=== PATIENT | female | born 1980 | race Caucasian/White ===

== ENCOUNTER 2018-12-22 16:56 | Emergency (ER) | payer MEDICAID, OTHER ==
[~2018-12-22] VITALS: Ht 180.3 cm; Wt 108.9 kg
[2018-12-22 17:05] VITALS: BP_SYST 134
--- NOTE | 2018-12-22 17:14 | NUR ---
Patient to ER bed 4 to gown for evaluation. Side rails up. Report given to Valerio PAYTON.
--- NOTE | 2018-12-22 17:20 | NUR ---
PT AAOx4 ambulated into ED c/o dysuria x 3 days with new onset 8/10 bilateral flank pain. Skin pink dry and warm, breathing even and unlabored. No other injuries/complaints per pt/noted. Will continue to monitor.
[2018-12-22] MEDS ORDERED: KETOROLAC TROMETHAMINE 30 MG VIAL IVP ONE (17:30)
[2018-12-22] MEDS ORDERED: NACL 0.9% 1,000 ML IV ONE (17:30)
[2018-12-22 17:42] LABS: BILIRUBIN,URINE NEGATIVE (NEGATIVE); BLOOD, URINE NEGATIVE (NEGATIVE); CLARITY/URINE SL HAZY (CLEAR); COLOR,URINE YELLOW (YELLOW); GLUCOSE,URINE NEGATIVE (NEGATIVE); KETONES,URINE NEGATIVE (NEGATIVE); LEUKOCYTE ESTERASE ,URINE 1+ (NEGATIVE); NITRITE, URINE NEGATIVE (NEGATIVE); PH,URINE 5.5 (5.0-8.0); PROTEIN URINE NEGATIVE (NEGATIVE); UROBILINOGEN,URINE 0.2 (0.2-1.0)
--- NOTE | 2018-12-22 17:48 | NUR ---
ER MONICA Cabrera examining patient.
[2018-12-22 17:58] LABS: RBC,URINE 0-3 /HPF (0-3)
[2018-12-22 17:59] LABS: BACTERIA,URINE MODERATE /HPF (None Seen); MUCUS,URINE 1+ /LPF (None Seen)
[2018-12-22 18:01] LABS: BASOPHILS # (AUTO) 0.1 K/uL (0.0-0.2); BASOPHILS % (AUTO) 0.8 % (0.0-2.0); EOSINOPHILS # (AUTO) 0.3 K/uL (0.0-0.4); EOSINOPHILS % (AUTO) 2.6 % (0.0-4.0); HEMATOCRIT 45.1 % (36-48); HEMOGLOBIN 14.6 g/dL (12.0-16.0); LYMPHOCYTES # (AUTO) 3.6 K/uL (1.0-5.5); LYMPHOCYTES % (AUTO) 31.7 % (20.5-51.5); MEAN CORPUSCULAR HEMOGLOBIN 26 pg (27-31); MEAN CORPUSCULAR HGB CONC 32 % (32-36); MEAN CORPUSCULAR VOLUME 82 fL (79.0-98.0); MONOCYTES # (AUTO) 0.9 K/uL (0.0-1.0); MONOCYTES % (AUTO) 7.6 % (1.7-9.3); NEUTROPHILS # (AUTO) 6.5 K/uL (1.8-7.7); NEUTROPHILS % (AUTO) 57.3 % (40.0-70.0); PLATELET COUNT (AUTO) 387 K/uL (130-430); RED BLOOD CELL COUNT(AUTO) 5.54 MIL/uL (4.2-6.2); RED CELL DISTRIBUTION WIDTH 13.9 % (9.0-15.0); WHITE BLOOD COUNT (AUTO) 11.4 K/uL (4.8-10.8)
[2018-12-22 18:13] LABS: CALCIUM 10.2 mg/dL (8.4-11.0); CREATININE 0.74 mg/dL (0.55-1.30); POTASSIUM 3.8 mmol/L (3.5-5.1)
[2018-12-22 18:17] LABS: ALBUMIN 3.9 g/dL (3.4-4.8); TOTAL BILIRUBIN 0.3 mg/dL (0.0-1.0)
--- NOTE | 2018-12-22 18:38 | NUR ---
Pt transported to ultrasound via wheelchair in stable condition
--- NOTE | 2018-12-22 19:02 | NUR ---
Pt moved to bed 07
--- NOTE | 2018-12-22 19:09 | NUR ---
Pelvic exam performed by Deborah ANDERSON with Maria C RN at bedside for entire examination. Patient tolerated procedure well. Patient assisted to position of comfort after examination.
[2018-12-22] MEDS ORDERED: PHENAZOPYRIDINE HCL 100 MG TABLET PO ONE (19:15)
[2018-12-22] MEDS ORDERED: ONDANSETRON HCL 4 MG/2 ML VIAL IVP ONE (19:30)
[2018-12-22] MEDS ORDERED: NITROFURANTOIN MONOHYD/M-CRYST 100 MG CAPSULE PO ONE (20:00)
[2018-12-22 20:15] VITALS: BP_SYST 130
--- NOTE | 2018-12-22 20:15 | NUR ---
Patient given written and verbal discharge instructions and verbalizes understanding. ER MD discussed with patient the results and treatment provided. Patient in stable condition. ID arm band removed. IV catheter removed intact and dressing applied, no active bleeding. Rx of pyridium, macrobid, motrin given. Patient educated on pain management and to follow up with PMD. Pain Scale 2/10. Opportunity for questions provided and answered. Medication side effect fact sheet provided.
[2018-12-24 21:06] LABS: CHLAMYDIA TRACHOMATIS NAA Negative (Negative); NEISSERIA GONORRHOEAE NAA Negative (Negative)
== END 2018-12-22 20:15 | disposition home or self-care (01) ==
LOC: SED 16:56
DX: N20.0 Calculus of kidney (principal); N39.0 Urinary tract infection, site not specified; R03.0 Elevated blood-pressure reading, without diagnosis of hypertension; Z11.3 Encounter for screening for infections with a predominantly sexual mode of transmission; Z90.89 Acquired absence of other organs; Z88.0 Allergy status to penicillin; Z88.1 Allergy status to other antibiotic agents; Z91.041 Radiographic dye allergy status; Z91.048 Other nonmedicinal substance allergy status; Z88.8 Allergy status to other drugs, medicaments and biological substances
CPT/HCPCS: 36415; 74176; 76830; 76857; 80053; 81000; 81025; 83690; 85025; 87086; 87210; 87491; 87591; 96374; 96375; 99284; J1885; J2405; J7030

== ENCOUNTER 2019-01-03 16:47 | Inpatient (IN) | payer MEDICAID, OTHER ==
[~2019-01-03] VITALS: Ht 180.3 cm; Wt 108.9 kg
[2019-01-03 16:53] VITALS: BP_SYST 132
[2019-01-03 17:51] LABS: CALCIUM 9.4 mg/dL (8.4-11.0); CREATININE 0.65 mg/dL (0.55-1.30); POTASSIUM 3.6 mmol/L (3.5-5.1)
[2019-01-03 17:55] LABS: ALBUMIN 3.6 g/dL (3.4-4.8); TOTAL BILIRUBIN 0.3 mg/dL (0.0-1.0)
[2019-01-03 17:58] LABS: BASOPHILS # (AUTO) 0.1 K/uL (0.0-0.2); BASOPHILS % (AUTO) 0.9 % (0.0-2.0); EOSINOPHILS # (AUTO) 0.8 K/uL (0.0-0.4); HEMATOCRIT 41.6 % (36-48); HEMOGLOBIN 13.8 g/dL (12.0-16.0); LYMPHOCYTES # (AUTO) 3.3 K/uL (1.0-5.5); LYMPHOCYTES % (AUTO) 23.8 % (20.5-51.5); MEAN CORPUSCULAR HEMOGLOBIN 27 pg (27-31); MEAN CORPUSCULAR HGB CONC 33 % (32-36); MEAN CORPUSCULAR VOLUME 83 fL (79.0-98.0); MONOCYTES # (AUTO) 0.9 K/uL (0.0-1.0); MONOCYTES % (AUTO) 6.4 % (1.7-9.3); NEUTROPHILS # (AUTO) 8.7 K/uL (1.8-7.7); NEUTROPHILS % (AUTO) 62.9 % (40.0-70.0); PLATELET COUNT (AUTO) 506 K/uL (130-430); RED BLOOD CELL COUNT(AUTO) 5.04 MIL/uL (4.2-6.2); WHITE BLOOD COUNT (AUTO) 13.9 K/uL (4.8-10.8)
[2019-01-03 18:56] LABS: BILIRUBIN,URINE NEGATIVE (NEGATIVE); BLOOD, URINE NEGATIVE (NEGATIVE); CLARITY/URINE CLEAR (CLEAR); COLOR,URINE YELLOW (YELLOW); GLUCOSE,URINE NEGATIVE (NEGATIVE); KETONES,URINE NEGATIVE (NEGATIVE); LEUKOCYTE ESTERASE ,URINE NEGATIVE (NEGATIVE); NITRITE, URINE NEGATIVE (NEGATIVE); PROTEIN URINE NEGATIVE (NEGATIVE); UROBILINOGEN,URINE 0.2 (0.2-1.0)
[2019-01-03] MEDS ORDERED: ONDANSETRON HCL 4 MG/2 ML VIAL IVP ONE ×2 (20:15→22:30)
[2019-01-03] MEDS ORDERED: NACL 0.9% 1,000 ML IV ONE (20:15)
[2019-01-03] MEDS ORDERED: KETOROLAC TROMETHAMINE 30 MG VIAL IVP ONE ×2 (20:15→21:45)
[2019-01-03] MEDS ORDERED: SULFAMETHOXAZOLE/TRIMETHOPR DS 1 TABLET PO ONE (21:45)
[2019-01-03] MEDS ORDERED: metroNIDAZOLE 500 mg/NS 100 ML IV ONE (21:45)
[2019-01-04] MEDS ORDERED: PROMETHAZINE INJ.Non-Formulary 25 MG/ML AMP IVP ONE (00:30)
[2019-01-04] MEDS ORDERED: ONDANSETRON HCL 4 MG/2 ML VIAL IVP ONE (00:45)
[2019-01-04] MEDS ORDERED: DIPHENHYDRAMINE INJ 50 MG/ML VIAL IVP ONE (01:15)
[2019-01-04] MEDS ORDERED: MORPHINE 4 MG/ML INJ. SYRINGE IVP ONE (01:15)
[2019-01-04] MEDS: metroNIDAZOLE 500 mg/NS 100 ML IV SCH ×3 (06:21→22:24)
[2019-01-04] MEDS: DIPHENHYDRAMINE INJ 50 MG/ML VIAL IVP PRN ×2 (06:27→20:16)
[2019-01-04] MEDS: MORPHINE 4 MG/ML INJ. SYRINGE IVP PRN ×3 (06:28→20:21)
[2019-01-04 07:45] VITALS: BP_SYST 111
[2019-01-04] MEDS ORDERED: AZTREONAM 1 GM in NS 50 ML IV ONE (08:45)
[2019-01-04] MEDS: D5NS 1,000 ML IV SCH ×3 (09:26→20:26)
[2019-01-04] MEDS: ONDANSETRON HCL 4 MG/2 ML VIAL IVP PRN ×2 (11:12→23:22)
[2019-01-04] MEDS: MORPHINE 2 MG/ML INJ. SYRINGE IVP PRN (11:13)
[2019-01-04 11:25] VITALS: BP_SYST 113
[2019-01-04] MEDS: AZTREONAM 1 GM in NS 50 ML IV SCH ×2 (15:30→22:01)
[2019-01-04 16:18] VITALS: BP_SYST 118
[2019-01-04 16:42] VITALS: BP_SYST 96
[2019-01-04 20:14] VITALS: BP_SYST 129
[2019-01-04 23:10] VITALS: BP_SYST 135
[2019-01-05] MEDS: MORPHINE 4 MG/ML INJ. SYRINGE IVP PRN ×5 (00:57→20:51)
[2019-01-05] MEDS: AZTREONAM 1 GM in NS 50 ML IV SCH ×3 (05:04→21:00)
[2019-01-05] MEDS: DIPHENHYDRAMINE INJ 50 MG/ML VIAL IVP PRN ×3 (05:20→22:16)
[2019-01-05] MEDS: metroNIDAZOLE 500 mg/NS 100 ML IV SCH ×3 (05:27→21:00)
[2019-01-05 07:54] VITALS: BP_SYST 117
[2019-01-05 08:13] LABS: ALBUMIN 2.7 g/dL (3.4-4.8); BILIRUBIN,DIRECT 0.1 mg/dL (0.0-0.3); TOTAL BILIRUBIN 0.4 mg/dL (0.0-1.0)
[2019-01-05] MEDS: D5NS 1,000 ML IV SCH ×3 (08:46→17:07)
[2019-01-05] MEDS ORDERED: LEVO750T45 PO (11:08)
[2019-01-05] MEDS ORDERED: METR500T PO (11:09)
[2019-01-05 11:18] VITALS: BP_SYST 122
[2019-01-05 14:57] LABS: BASOPHILS # (AUTO) 0.1 K/uL (0.0-0.2); BASOPHILS % (AUTO) 1.4 % (0.0-2.0); EOSINOPHILS # (AUTO) 0.4 K/uL (0.0-0.4); EOSINOPHILS % (AUTO) 4.9 % (0.0-4.0); HEMATOCRIT 38.1 % (36-48); HEMOGLOBIN 12.5 g/dL (12.0-16.0); LYMPHOCYTES # (AUTO) 1.9 K/uL (1.0-5.5); LYMPHOCYTES % (AUTO) 25.6 % (20.5-51.5); MEAN CORPUSCULAR HEMOGLOBIN 27 pg (27-31); MEAN CORPUSCULAR HGB CONC 33 % (32-36); MEAN CORPUSCULAR VOLUME 82 fL (79.0-98.0); MONOCYTES # (AUTO) 0.6 K/uL (0.0-1.0); NEUTROPHILS # (AUTO) 4.4 K/uL (1.8-7.7); NEUTROPHILS % (AUTO) 60.1 % (40.0-70.0); PLATELET COUNT (AUTO) 302 K/uL (130-430); RED BLOOD CELL COUNT(AUTO) 4.63 MIL/uL (4.2-6.2); RED CELL DISTRIBUTION WIDTH 13.7 % (9.0-15.0); WHITE BLOOD COUNT (AUTO) 7.3 K/uL (4.8-10.8)
[2019-01-05 15:47] VITALS: BP_SYST 115
[2019-01-05 20:48] VITALS: BP_SYST 131
[2019-01-06] MEDS: D5NS 1,000 ML IV SCH ×3 (00:30→14:08)
[2019-01-06] MEDS: MORPHINE 2 MG/ML INJ. SYRINGE IVP PRN (02:18)
[2019-01-06 02:25] VITALS: BP_SYST 131
[2019-01-06] MEDS: AZTREONAM 1 GM in NS 50 ML IV SCH ×2 (05:01→14:07)
[2019-01-06] MEDS: metroNIDAZOLE 500 mg/NS 100 ML IV SCH ×2 (05:01→14:11)
[2019-01-06 05:45] VITALS: BP_SYST 135
[2019-01-06] MEDS: ONDANSETRON HCL 4 MG/2 ML VIAL IVP PRN ×2 (05:48→11:27)
[2019-01-06] MEDS: MORPHINE 4 MG/ML INJ. SYRINGE IVP PRN ×2 (05:50→11:27)
[2019-01-06 08:02] VITALS: BP_SYST 116
[2019-01-06 12:00] VITALS: BP_SYST 128
[2019-01-06 16:46] VITALS: BP_SYST 139
== END 2019-01-06 17:25 | disposition home or self-care (01) | DRG 244 ==
LOC: SED 16:47 → SMU 01-04 01:20
PROVIDERS: ADMIT Internal Medicine Hospice and Palliative Medicine; ATTEND Internal Medicine Hospice and Palliative Medicine
DX: K57.32 Diverticulitis of large intestine without perforation or abscess without bleeding (principal); Q79.6 Ehlers-Danlos syndromes; I49.8 Other specified cardiac arrhythmias; N39.0 Urinary tract infection, site not specified; Z87.442 Personal history of urinary calculi; Z88.6 Allergy status to analgesic agent; Z88.1 Allergy status to other antibiotic agents; Z88.0 Allergy status to penicillin; Z88.8 Allergy status to other drugs, medicaments and biological substances; Z91.048 Other nonmedicinal substance allergy status; Z90.49 Acquired absence of other specified parts of digestive tract
CPT/HCPCS: 36415; 80053; 80076; 81003; 83690-TC; 85025; 87040-TC; 96361; 96365; 96375; 96376; 99285; J1200; J1885; J2270; J2405; J2550; J3490; J7042

== ENCOUNTER 2021-08-26 00:24 | Emergency (ER) | payer MEDICAID ==
[~2021-08-26] VITALS: Ht 180.3 cm; Wt 117.9 kg
[~2021-08-26 00:24] MED LIST: METR500T PO
[2021-08-26 00:59] VITALS: BP_SYST 167
[2021-08-26 02:00] VITALS: BP_SYST 164
[2021-08-26] MEDS ORDERED: PANTOPRAZOLE SODIUM 40 MG TAB PO ONE (02:45)
[2021-08-26] MEDS ORDERED: OXYMETAZOLINE HCL 0.05% NASAL SPRAY NS ONE (02:45)
[2021-08-26] MEDS ORDERED: PANT20TA2 PO (02:46)
[2021-08-26] MEDS ORDERED: OXYM15MI9 NS (02:46)
== END 2021-08-26 03:43 | disposition home or self-care (01) ==
LOC: SED 00:24
DX: J34.89 Other specified disorders of nose and nasal sinuses (principal); R11.10 Vomiting, unspecified; Z87.442 Personal history of urinary calculi; Z79.899 Other long term (current) drug therapy; Z98.890 Other specified postprocedural states; Z87.19 Personal history of other diseases of the digestive system
CPT/HCPCS: 99283